=== PATIENT | female | born 1945 | race Caucasian/White ===

== ENCOUNTER 2017-09-06 05:43 | Inpatient (IN) | payer OTHER ==
[2017-09-06] MEDS ORDERED: TRANEXAMIC ACID 3,000 MG in NS (SYRINGE) 50 ML IRR ONE (06:00)
[2017-09-06] MEDS ORDERED: ROPIVACAINE 0.2% 80 MG, EPINEPHrine 0.2 MG, KETOROLAC TROMETHAMINE 30 MG in SYRINGE 0 ML IU ONE (06:00)
[2017-09-06] MEDS ORDERED: FAMOTIDINE 20 MG TAB PO ONE (06:15)
[2017-09-06] MEDS ORDERED: ceFAZolin 2 GM/SWFI 2 GM/20 ML SYR IVP ONE (06:15)
[2017-09-06] MEDS ORDERED: DEXAMETHASONE 4 MG/ML VIAL IVP ONE (06:15)
[2017-09-06] MEDS ORDERED: ACETAMINOPHEN 325 MG TAB PO ONE (06:15)
[2017-09-06] MEDS ORDERED: LR 1,000 ML IV ONE (06:16)
[2017-09-06] MEDS ORDERED: LIDOCAINE 1% 2 ML INJ ID PRN (06:16)
[2017-09-06] MEDS ORDERED: TRANEXAMIC ACID 3,000 MG/50 ML BAG IRR ONE (06:38)
--- NOTE | 2017-09-06 07:11 | PDHPUP ---
History & Physical Update H&P update statement: This history and physical update is based on an assessment of the patient which was completed after admission or registration (within 24 hours), but prior to the surgery/procedure. H&P update: H&P reviewed & patient examined, no change in patient's condition since H&P completed
[2017-09-06] MEDS ORDERED: MIDAZOLAM 2 MG/2 ML VIAL IVP ONE (07:43)
--- NOTE | 2017-09-06 07:43 | PDANEPAE ---
ANE History of Present Illness L THELMA ANE Past Medical History - Cardiovascular History Hx Hypertension: No Hx Arrhythmias: No Hx Chest Pain: No Hx Coronary Artery / Peripheral Vascular Disease: No Hx CHF / Valvular Disease: No Hx Palpitations: No - Pulmonary History Hx COPD: No Hx Asthma/Reactive Airway Disease: No Hx Recent Upper Respiratory Infection: No Hx Oxygen in Use at Home: No Hx Sleep Apnea: No Sleep Apnea Screening Result - Last Documented: Negative - Neurologic History Hx Cerebrovascular Accident: No Hx Seizures: No Hx Dementia: No - Endocrine History Hx Diabetes: No - Renal History Hx Renal Disorders: No - Liver History Hx Hepatic Disorders: No - Neurological & Psychiatric Hx Hx Neurological and Psychiatric Disorders: No - Cancer History Hx Cancer: No - Congenital Disorder History Hx Congenital Disorders: No - GI History Hx Gastrointestinal Disorders: No - Other Health History Other Health History: NONE - Chronic Pain History Chronic Pain: No - Surgical History Prior Surgeries: COLONSCOPY. BREAST BIOPSY 1995 ANE Review of Systems Review of systems is: negative Review of Systems: - Exercise capacity METS (RN): 4 METS ANE Patient History - Allergies Allergies/Adverse Reactions: No Known Allergies Allergy (Verified 08/03/17 10:38) - Home Medications Home medications: home medication list seen and reviewed Home Medications: Ascorbic Acid [Vitamin C 500 mg (*)] 500 mg PO DAILY 07/27/17 [Last Taken ] Herbals/Supplements -Info Only 1 ea PO DAILY 07/27/17 [Last Taken 08/29/17] Levothyroxine [Synthroid 75 mcg (*)] 75 mcg PO DAILY06 07/27/17 [Last Taken 06/25] Multivitamins [Multivitamin (*)] 1 each PO DAILY 07/27/17 [Last Taken 06/20/17] Naproxen Sodium [Aleve 220 MG (*)] 220 mg PO BID PRN 07/27/17 [Last Taken ] Simvastatin [Zocor] 20 mg PO DAILY18 07/27/17 [Last Taken 09/05/17] - NPO status NPO Since - Liquids (Date): 09/06/17 NPO Since - Liquids (Time): 06:00 NPO Since - Solids (Date): 09/05/17 NPO Since - Solids (Time): 18:00 - Anes Hx Anes Hx: no prior problems - Smoking Hx Smoking Status: Never smoked - Family Anes Hx Family Anes Hx: none Family Hx Anesthesia Complications: NONE ANE Labs/Vital Signs - Vital Signs Blood Pressure: 168/82 Heart Rate: 63 Respiratory Rate: 16 O2 Sat (%): 93 Height: 172.72 cm Weight: 81.647 kg ANE Physical Exam - Airway Neck exam: FROM Mallampati Score: Class 1 Mouth exam: normal dental/mouth exam - Pulmonary Pulmonary: no respiratory distress - Cardiovascular Cardiovascular: regular rate and rhythym - ASA Status ASA Status: I ANE Anesthesia Plan Anesthesia Plan: MAC, spinal
[2017-09-06] MEDS ORDERED: MIDAZOLAM 2 MG/2 ML VIAL ONE (07:44)
[2017-09-06] MEDS ORDERED: PROPOFOL/EMULSION 500 MG/50 ML BOTTLE IV ONE (08:11)
[2017-09-06] MEDS ORDERED: LIDOCAINE 2% 100 MG/5 ML SYR ONE (08:11)
[2017-09-06] MEDS ORDERED: fentaNYL 100 MCG/2 ML INJ IVP PRN (08:34)
[2017-09-06] MEDS ORDERED: ONDANSETRON 4 MG/2 ML VIAL IVP PRN ×2 (08:34→09:24)
[2017-09-06] MEDS ORDERED: oxyCODONE IR 5 MG TAB PO PRN ×2 (08:34→09:24)
[2017-09-06] MEDS ORDERED: ACETAMINOPHEN 500 MG TAB PO PRN (08:34)
[2017-09-06] MEDS ORDERED: DEXAMETHASONE 4 MG/ML VIAL IVP PRN (08:34)
[2017-09-06] MEDS ORDERED: PROMETHAZINE HCL 25 MG/ML INJ IVP PRN ×2 (08:34→09:24)
[2017-09-06] MEDS ORDERED: HYDROmorphONE/DILAUDID 2 MG/ML INJ IVP PRN (08:34)
[2017-09-06] MEDS ORDERED: NALOXONE HCL 0.4 MG/ML INJ IVP PRN (08:34)
[2017-09-06] MEDS ORDERED: MEPERIDINE 25 MG/ML SYR IVP PRN (08:34)
[2017-09-06] MEDS ORDERED: HYDROCODONE/APAP 5/325 TAB PO PRN (08:34)
--- NOTE | 2017-09-06 08:36 | POSTANESTH ---
Post Anesthetic Evaluation Cardiovascular Status: Normal, Stable, Similar to Pre-Op Cond Respiratory Status: Normal, Stable, Similar to Pre-op Cond. Level of Consciousness/Mental Status: Can Participate in Eval, Mildly Sleepy, Arousable Pain Control: Adequate, Prn Tx Ordered Nausea/Vomiting Control: Adequate, Prn Tx Ordered Complications Possibly Related to Anesthesia: None Noted
[2017-09-06] MEDS ORDERED: ONDANSETRON DISINTEGRATING 4 MG TAB PO PRN (09:24)
[2017-09-06] MEDS ORDERED: MAGNESIUM HYDROXIDE 30 ML UDCUP PO PRN (09:24)
[2017-09-06] MEDS ORDERED: LACTULOSE 20 GM/30 ML UDCUP PO PRN (09:24)
[2017-09-06] MEDS ORDERED: diphenhydrAMINE 25 MG CAP PO PRN (09:24)
[2017-09-06] MEDS ORDERED: BISACODYL 10 MG SUPP PR PRN (09:24)
[2017-09-06] MEDS ORDERED: DIPHENOXYLATE/ATROPINE LOMOTIL 1 TAB PO PRN (09:24)
[2017-09-06] MEDS ORDERED: TEMAZEPAM 15 MG CAP PO PRN (09:24)
[2017-09-06] MEDS ORDERED: METOCLOPRAMIDE 10 MG/2 ML VIAL IVP PRN (09:24)
[2017-09-06] MEDS ORDERED: PROMETHAZINE HCL 25 MG SUPPR PR PRN (09:24)
[2017-09-06] MEDS ORDERED: CYCLOBENZAPRINE 10 MG TAB PO PRN (09:24)
[2017-09-06] MEDS ORDERED: POLYETHYLENE GLYCOL 3350 17 GM PKT PO PRN (09:24)
[2017-09-06] MEDS ORDERED: LR 1,000 ML IV SCH (09:30)
--- NOTE | 2017-09-06 09:32 | POSTOPPROG ---
Post Op Note Date of Operation: 09/06/17 Surgeon: Jimena Hallman Machine Ironer: panda hallman Anesthesiologist: dr. green Anesthesia: Spinal Pre-op Diagnosis: left hip OA Post-op Diagnosis: same Indication: left hip pain Procedure: L THELMA ant approach Findings: severe hip OA Inf/Abcess present in the surg proc area at time of surgery?: No EBL: 50-100
[2017-09-06] MEDS: ACETAMINOPHEN 325 MG TAB PO SCH ×3 (11:12→23:40)
--- NOTE | 2017-09-06 12:39 | PDMN ---
Medical Necessity Medical necessity: [facility] IP only surgery, cpt 89493 L THELMA
[2017-09-06] MEDS ORDERED: ceFAZolin 2 GM/DEXTROSE 100 ML IV SCH (14:00)
[2017-09-06] MEDS: ceFAZolin 2 GM/SWFI 2 GM/20 ML SYR IVP SCH ×2 (16:31→23:40)
--- NOTE | 2017-09-06 17:54 | GOP ---
[f rep st] OPERATIVE REPORT DATE OF OPERATION: 09/06/2017 SURGEON: Ananda Pacheco MD CORPORATE GENERAL MANAGER: ASIA Gee. ANESTHESIA: Spinal. PREOPERATIVE DIAGNOSIS: Left hip osteoarthritis. POSTOPERATIVE DIAGNOSIS: Left hip osteoarthritis. PROCEDURE PERFORMED: Left total hip arthroplasty with x-ray. FINDINGS: ESTIMATED BLOOD LOSS: 200 cc. INDICATIONS: The patient has progressively worsening arthritis of the hip which has failed medical m anagement. The patient understands the treatment options including continued non-operative care and has selected surgical intervention. The patient has decided to undergo total hip arthroplasty via th e direct anterior approach, understanding the risks of the procedure including, but not limited to, n eurovascular injury, infection, persistent pain, component wear and loosening, deep venous thrombosis , pulmonary embolism, limb length inequality, hip instability (including dislocation), and intra-oper ative fractures. DESCRIPTION OF PROCEDURE: After proper identification of the patient including verification and mckayla ing the surgical site, the patient was brought to the operating room and placed in the supine positio n. All bony prominences were well padded. Anesthesia was induced without complication and intraveno us prophylactic antibiotics were administered prior to skin incision. The operative leg was placed in the Trumpf Arch table extension and the well leg in a Yellofin leg ho lder. The patient was prepped and draped in the usual sterile fashion. The C-arm was draped for int ra-operative fluoroscopy to check acetabular position, femoral component position including leg lengt h and femoral offset. Attention was then drawn to surgical exposure of the hip. An incision was made with a #10 Bard Pipo r blade starting 3 cm lateral and 3 cm distal to the anterior superior iliac spine measuring 8-10 cm and coursing distally toward the greater trochanter. The skin and subcutaneous tissues were divided sharply down to the fascia maria r. The fascia maria r was incised in line with the skin incision exposing the underlying tensor fascia maria r muscle. The muscle was bluntly elevated from the fascia and the f irst extracapsular Cobra retractor was placed laterally at the junction of the superior femoral neck and greater trochanter. The lateral femoral circumflex vessels were identified, cauterized, and divi ded with the Aquamantys bipolar cautery. The deep investing fascia of the TFL was divided to allow p liliya mobilization of the muscle preventing damage during the retraction. The reflected head of the rectus femoris muscle was elevated off the anterior hip capsule and a medial Cobra retractor was plac ed just proximal to the lesser trochanter. The anterior capsulotomy was made sharply from the superolateral acetabulum to the saddle junction of the superior femoral neck and greater trochanter, then coursing inferomedial towards the lesser troc hanter. The retractors were then placed in the intracapsular position for femoral neck osteotomy. C orresponding to pre-operative templating, the osteotomy was made with the oscillating saw carefully p rotecting the greater trochanter and soft tissues. The femoral head was removed from the acetabulum with a corkscrew and confirmed to be severely arthritic with exposed bone, deformity and osteophytes. Similar findings were confirmed in the acetabulum. The Arch table extension was then placed in 40 degrees external rotation. Attention was then drawn to the acetabular preparation. After placement of the anterior and posterio r Cobra retractors outside the labrum and intracapsular, the circumferential labrum was removed sharp ly. The foveal contents were then removed and hemostasis obtained with cautery. The first reamer selected was sized using the removed femoral head. Reaming began with medialization and then commenced in 2 mm increments at 45 degrees of abduction and 15 degrees of anteversion using fluoroscopic navigation. Reaming ceased 1 mm less than the definitive acetabular component and efraín esponded to the pre-operative templating. The final acetabular component was inserted using fluorosc opy to achieve proper orientation yielding excellent purchase and stability in the acetabulum. The f inal acetabular liner was then placed and its seating confirmed. Attention was then turned to the femur. The Arch table extension was placed in extension and adducti on, delivering the osteotomized femoral neck into the wound. A 2-pronged femoral elevator was placed at the calcar and another at the tip of the greater trochanter. The posterolateral capsule was rele ased with cautery allowing mobilization of the femur lateral and anterior for preparation. The exter nal rotators were visualized and preserved. A curette and rongeur were used to open the starting poi nt for broaching. Serial broaching started with the #0 broach and ended with the broach that exhibit ed excellent fit in the proximal femur. A change in pitch during mallet strikes was accompanied by t he inability to advance the broach any further. The trial reduction was performed and fluoroscopic n avigation was utilized to check limb length. Adjustments were made to equalize limb length according ly. After the final trials were accepted they were removed and the wound was copiously lavaged. The femo ral component was seated to the same depth as the final broach and the femoral head was impacted onto the clean trunnion. The hip was then reduced for the final time and once more fluoroscopy was used to check that limb length equality was achieved. The wound was irrigated and closed in layers, the fascia maria r with 2-0 Quill, the subcutaneous tissue with 2-0 Quill, and the skin with Dermabond. Sterile dressings were applied. Final sharps and spon ge counts were accurate. The patient was then transferred to a hospital bed and brought to the [facility] room in stable condition. IMPLANTS: Accolade II size 8 at 127. Acetabular component a 54 mm Trident II. Liner is a Trident X 3, 36 mm. Head is a Biolox Delta 36 mm, -5. /[id number]/MODL
[2017-09-06] MEDS ORDERED: ATORVASTATIN CALCIUM 10 MG TAB PO SCH (18:00)
[2017-09-06] MEDS: ASPIRIN 81 MG CHEWABLE TAB PO SCH (20:56)
[2017-09-06] MEDS: FAMOTIDINE 20 MG TAB PO SCH (20:56)
[2017-09-06] MEDS: SENNOSIDES/DOCUSATE SODIUM TAB PO SCH (20:57)
[2017-09-07] MEDS: ACETAMINOPHEN 325 MG TAB PO SCH (05:05)
[2017-09-07] MEDS ORDERED: LEVOTHYROXINE 75 MCG TAB PO SCH (06:00)
[2017-09-07 07:36] VITALS: BP 163/69
--- NOTE | 2017-09-07 08:32 | SOAPPROG ---
SOAP Progress Note Assessment/Plan: Assessment: Patient is doing well POD 1 s/p L THELMA Pain management: pain is well controlled on oral pain meds. VTE ppx: recommend aspirin 81 mg BID for 4 weeks, cont GAURAV and SCDs Anemia: level is expected initially postop. Asymptomatic. Continue to monitor D/c planning: d/c to home today pending release from PT Plan: 09/07/17 08:31 Subjective: Oanh is doing well today, denies SOB, chest pain and N/V Objective: Vital Signs Temp Pulse Resp BP Pulse Ox 36.8 C 60 16 163/69 H 93 09/07/17 07:35 09/07/17 07:35 09/07/17 07:35 09/07/17 07:35 09/07/17 07:35 Laboratory Results 09/07/17 05:01 09/06/17 09/07/17 09/08/17 05:59 05:59 05:59 Intake Total 2594 Output Total 1750 300 Balance 844 -300 LLE Incision dressing is clean and dry, NVI, +pf/df ICD10 Worksheet Patient Problems: Problems Problem Status Onset Primary localized osteoarthritis of left hip Acute
[2017-09-07] MEDS: ASPIRIN 81 MG CHEWABLE TAB PO SCH (08:33)
[2017-09-07] MEDS: SENNOSIDES/DOCUSATE SODIUM TAB PO SCH (08:33)
[2017-09-07] MEDS: FAMOTIDINE 20 MG TAB PO SCH (08:33)
--- NOTE | 2017-09-07 09:06 | GDS ---
[f rep st] DISCHARGE SUMMARY ADMISSION DIAGNOSIS: Left hip osteoarthritis. DISCHARGE DIAGNOSIS: Left hip osteoarthritis. PROCEDURE: Left total hip arthroplasty VTE PROPHYLAXIS: Recommend aspirin 81 mg twice daily for 4 weeks. BRIEF DESCRIPTION OF HOSPITAL STAY: Patient was admitted for an elective joint arthroplasty. The patient tolerated the procedure well and has passed physical therapy. The patient was given appropriate antibiotic prophylaxis and venous thromboembolism prophylaxis. The patient's pain was well controlled on oral pain medication, patient was holding down food, and had urinated. Decision was made to discharge the patient. The patient was given post-operative prescriptions pre-operatively. PLANS: Follow up as scheduled Dr. Pacheco's office September 28 at 11 a.m. /[id number]/MODL MTDD
--- NOTE | 2017-09-07 09:22 | GDS ---
[f rep st] DISCHARGE SUMMARY ADMISSION DIAGNOSIS: Left hip osteoarthritis. DISCHARGE DIAGNOSIS: Left hip osteoarthritis. PROCEDURE: Left total hip arthroplasty. VTE PROPHYLAXIS: Recommend baby aspirin 81 mg twice daily for 4 weeks. BRIEF DESCRIPTION OF HOSPITAL STAY: Patient was admitted for an elective joint arthroplasty. The pa candy tolerated the procedure well and has passed physical therapy. The patient was given appropriat e antibiotic prophylaxis and venous thromboembolism prophylaxis. The patient's pain was well control led on oral pain medication, patient was holding down food, and had urinated. Decision was made to d ischarge the patient. The patient was given post-operative prescriptions pre-operatively. PLAN: Follow up as scheduled Dr. Pacheco's office, September 28 at 10:15. /[id number]/MODL
== END 2017-09-07 09:47 | disposition home or self-care (01) | DRG 470 ==
LOC: F3N 05:43
PROVIDERS: ADMIT Orthopaedic Surgery; ATTEND Orthopaedic Surgery
PROC: 0SRB04Z Replacement of Left Hip Joint with Ceramic on Polyethylene Synthetic Substitute, Open Approach (ICD-10-PCS; principal; 2017-09-06 08:15)
DX: M16.12 Unilateral primary osteoarthritis, left hip (principal)
CPT/HCPCS: 97116-GP; 97161-GP; G8978-GP-CJ; G8979-GP-CI; G8980-GP-CI; J0171; J0690; J1100; J1885; J2001; J2250; J2704; J2795

== ENCOUNTER 2018-07-18 08:45 | Inpatient (IN) | payer OTHER ==
[~2018-07-18 08:45] MED LIST: ROPIVACAINE 0.2% 80 MG, EPINEPHrine 0.2 MG, KETOROLAC TROMETHAMINE 30 MG in SYRINGE 0 ML IU ONE; TRANEXAMIC ACID 3,000 MG in NS (SYRINGE) 50 ML IRR ONE; TRANEXAMIC ACID 3,000 MG/50 ML BAG IRR ONE
[2018-07-18] MEDS ORDERED: FAMOTIDINE 20 MG TAB PO ONE (08:58)
[2018-07-18] MEDS ORDERED: ceFAZolin 2 GM/DEXTROSE 100 ML IV ONE (08:58)
[2018-07-18] MEDS ORDERED: DEXAMETHASONE 4 MG/ML VIAL IVP ONE (08:58)
[2018-07-18] MEDS ORDERED: ACETAMINOPHEN 325 MG TAB PO ONE (08:58)
[2018-07-18] MEDS ORDERED: LR 1,000 ML IV ONE (08:59)
[2018-07-18] MEDS ORDERED: ROPIVACAINE 0.2% 80 MG, EPINEPHrine 0.2 MG, KETOROLAC TROMETHAMINE 30 MG in SYRINGE 0 ML IU ONE (09:15)
[2018-07-18] MEDS ORDERED: TRANEXAMIC ACID 3,000 MG in NS (SYRINGE) 50 ML IRR ONE (09:30)
--- NOTE | 2018-07-18 10:48 | PDANEPAE ---
ANE History of Present Illness right hip DJD, here for RTHA ANE Past Medical History - Cardiovascular History Hx Hypertension: No Hx Arrhythmias: No Hx Chest Pain: No Hx Coronary Artery / Peripheral Vascular Disease: No Hx CHF / Valvular Disease: No Hx Palpitations: No - Pulmonary History Hx COPD: No Hx Asthma/Reactive Airway Disease: No Hx Recent Upper Respiratory Infection: No Hx Oxygen in Use at Home: No Hx Sleep Apnea: No Sleep Apnea Screening Result - Last Documented: Negative - Neurologic History Hx Cerebrovascular Accident: No Hx Seizures: No Hx Dementia: No - Endocrine History Hx Diabetes: No - Renal History Hx Renal Disorders: No - Liver History Hx Hepatic Disorders: No - Neurological & Psychiatric Hx Hx Neurological and Psychiatric Disorders: No - Cancer History Hx Cancer: No - Congenital Disorder History Hx Congenital Disorders: No - GI History Hx Gastrointestinal Disorders: No - Other Health History Other Health History: NONE - Chronic Pain History Chronic Pain: No - Surgical History Prior Surgeries: COLONSCOPY. BREAST BIOPSY 1995 ANE Review of Systems Review of Systems: - Exercise capacity METS (RN): 4 METS ANE Patient History - Allergies Allergies/Adverse Reactions: No Known Allergies Allergy (Verified 07/03/18 10:35) - Home Medications Home Medications: Ascorbic Acid [Vitamin C 500 mg (*)] 500 mg PO DAILY@07/27/17 [Last Taken ] Herbals/Supplements -Info Only 1 ea PO DAILY 07/27/17 [Last Taken 07/04/18] Levothyroxine [Synthroid 75 mcg (*)] 75 mcg PO DAILY06 07/27/17 [Last Taken ] Multivitamins [Multivitamin (*)] 1 each PO DAILY@07/27/17 [Last Taken ] Simvastatin [Zocor] 20 mg PO DAILY18 07/27/17 [Last Taken 07/18/18] Aspirin [Aspirin 81mg (*)] 81 mg PO SUTUTHSA@06/28/18 [Last Taken 07/18/18] Cholecalciferol Vit D3 [Vitamin D3 2000 units tab (OTC)] 2,000 units PO DAILY@06/28/18 [Last Taken 07/18/18] - NPO status NPO Since - Liquids (Date): 07/18/18 NPO Since - Liquids (Time): 08:00 NPO Since - Solids (Date): 07/17/18 NPO Since - Solids (Time): 18:00 - Smoking Hx Smoking Status: Never smoked - Family Anes Hx Family Hx Anesthesia Complications: NONE ANE Labs/Vital Signs - Vital Signs Blood Pressure: 181/85 Heart Rate: 63 Respiratory Rate: 18 O2 Sat (%): 93 Height: 172.72 cm Weight: 80.739 kg ANE Physical Exam - Airway Neck exam: FROM Mallampati Score: Class 2 Mouth exam: normal dental/mouth exam - Pulmonary Pulmonary: no respiratory distress, no rales or rhonchi - Cardiovascular Cardiovascular: regular rate and rhythym, no murmur, rub, or gallop - ASA Status ASA Status: II ANE Anesthesia Plan Anesthesia Plan: GA with mask, spinal Total IV Anesthesia: Yes
[2018-07-18] MEDS ORDERED: BUPIVACAINE 0.5% 30 ML SDV ONE (10:54)
[2018-07-18] MEDS ORDERED: PHENYLEPHRINE HCL 100 MCG/ML SYR ONE (10:55)
[2018-07-18] MEDS ORDERED: PROPOFOL/EMULSION 500 MG/50 ML BOTTLE IV ONE (10:55)
[2018-07-18] MEDS ORDERED: ONDANSETRON 4 MG/2 ML VIAL ONE (10:55)
[2018-07-18] MEDS ORDERED: fentaNYL 100 MCG/2 ML INJ ONE (10:55)
[2018-07-18] MEDS ORDERED: LIDOCAINE 2% 100 MG/5 ML SYR ONE (10:55)
[2018-07-18] MEDS ORDERED: PROMETHAZINE HCL 25 MG SUPPR PR PRN (11:45)
[2018-07-18] MEDS ORDERED: ONDANSETRON 4 MG/2 ML VIAL IVP PRN (11:45)
[2018-07-18] MEDS ORDERED: DIPHENOXYLATE/ATROPINE LOMOTIL 1 TAB PO PRN (11:45)
[2018-07-18] MEDS ORDERED: PROMETHAZINE HCL 25 MG/ML INJ IVP PRN (11:45)
[2018-07-18] MEDS ORDERED: TEMAZEPAM 15 MG CAP PO PRN (11:45)
[2018-07-18] MEDS ORDERED: METOCLOPRAMIDE 10 MG/2 ML VIAL IVP PRN (11:45)
[2018-07-18] MEDS ORDERED: diphenhydrAMINE 25 MG CAP PO PRN (11:45)
[2018-07-18] MEDS ORDERED: ONDANSETRON DISINTEGRATING 4 MG TAB PO PRN (11:45)
[2018-07-18] MEDS ORDERED: CYCLOBENZAPRINE 10 MG TAB PO PRN (11:45)
[2018-07-18] MEDS ORDERED: oxyCODONE IR 5 MG TAB PO PRN (11:45)
[2018-07-18] MEDS ORDERED: LR 1,000 ML IV SCH (11:45)
[2018-07-18] MEDS ORDERED: PROPOFOL 200 MG/20 ML VIAL ONE (12:17)
[2018-07-18] MEDS: ACETAMINOPHEN 325 MG TAB PO SCH ×3 (16:00→23:55)
[2018-07-18] MEDS ORDERED: ACETAMINOPHEN 325 MG TAB ONE (16:24)
[2018-07-18] MEDS: ceFAZolin 2 GM/DEXTROSE 100 ML IV SCH ×2 (17:00→23:56)
[2018-07-18] MEDS ORDERED: ATORVASTATIN CALCIUM 10 MG TAB PO SCH (18:00)
[2018-07-18] MEDS ORDERED: ASPIRIN 81 MG CHEWABLE TAB ONE (20:44)
[2018-07-18] MEDS ORDERED: FAMOTIDINE 20 MG TAB ONE (20:44)
[2018-07-18] MEDS: ASPIRIN EC 81 MG TAB PO SCH (21:00)
[2018-07-18] MEDS: FAMOTIDINE 20 MG TAB PO SCH (21:00)
[2018-07-18] MEDS: hydrALAZINE 25 MG TAB PO PRN (23:55)
--- NOTE | 2018-07-18 23:57 | PDHOSCONS ---
History and Physical - Chief Complaint Hypertension - History of Present Illness 73 yo F w/ OA, HLD, and hypothyroid admitted 07/18 for R THELMA; hospital medicine service consulted for management of elevated blood pressures. SBP noted to be 200's in the PACU. SBP is in the 180-190 range during my evaluation. The patient is very pleasant and asymptomatic. She tells me she had an elevated BP after her last surgery as well. Per our conversation she has a tendency to have elevated BP's in healthcare settings. Her home BP cuff usually reads SBP in the 120-130 range. She is not on medication for HTN but does have a family history of this. She denies pain at the moment. History Information - Allergies/Home Medication List Allergies/Adverse Reactions: No Known Allergies Allergy (Verified 07/03/18 10:35) Home Medications: Ascorbic Acid [Vitamin C 500 mg (*)] 500 mg PO DAILY@08 07/27/17 [Last Taken ] Herbals/Supplements -Info Only 1 ea PO DAILY 07/27/17 [Last Taken 07/04/18] Levothyroxine [Synthroid 75 mcg (*)] 75 mcg PO DAILY06 07/27/17 [Last Taken ] Multivitamins [Multivitamin (*)] 1 each PO DAILY@07/27/17 [Last Taken ] Simvastatin [Zocor] 20 mg PO DAILY18 07/27/17 [Last Taken 07/18/18] Aspirin [Aspirin 81mg (*)] 81 mg PO SUTUTHSA@06/28/18 [Last Taken 07/18/18] Cholecalciferol Vit D3 [Vitamin D3 2000 units tab (OTC)] 2,000 units PO DAILY@06/28/18 [Last Taken 07/18/18] I have personally reviewed and updated: family history, medical history - Past Medical History Additional medical history: Hypothyroid. HLD. OA - Surgical History Additional surgical history: R THELMA 07/18 - Family History Positive for: hypertension - Social History Smoking Status: Never smoked Review of Systems Review of Systems: ROS: 10pt was reviewed & negative except for what was stated in HPI & below Physical Exam Physical Exam: Temp Pulse Resp BP Pulse Ox 36.7 C 59 L 16 200/102 H 93 07/18/18 21:25 07/18/18 21:25 07/18/18 21:25 07/18/18 21:25 07/18/18 21:25 O2 (L/minute) 0 Constitutional: no apparent distress, not in pain Eyes: PERRL, EOMI Ears, Nose, Mouth, Throat: moist mucous membranes, no oral mucosal ulcers Cardiovascular: regular rate and rhythym, systolic murmur Respiratory: no respiratory distress, clear to auscultation Skin: warm, normal color Musculoskeletal: full muscle strength Neurologic: AAOx3, CN II-XII Intact Psychiatric: interacting appropriately, not anxious Lab Data & Imaging Review Imaging Review: Imaging Impressions Fluoroscopy 07/18/18 06:41 Impression: Intraoperative fluoroscopy provided during an ongoing right hip arthroplasty. Patient: Oanh Carrillo. Assessment & Plan Assessment: 73 yo F admitted for R THELMA now with post-operative HTN. Plan: 1. Elevated blood pressure - In the post-operative setting. Per my conversation with the patient she does not have HTN at baseline, but did have elevated BP after her last surgery as well. She denies pain at the moment but adrenergic surge from post-operative state is probably contributing regardless. - Hydralazine 25 mg PO PRN for SBP>180 ordered - Recommend continued follow up with PCP 2. R THELMA - Per orthopedics primary Thank you for this consult, the hospital medicine service will follow along with you.
[2018-07-19] MEDS: hydrALAZINE 25 MG TAB PO PRN (04:54)
[2018-07-19] MEDS ORDERED: LEVOTHYROXINE 75 MCG TAB PO SCH (06:00)
[2018-07-19] MEDS: ACETAMINOPHEN 325 MG TAB PO SCH (06:22)
[2018-07-19] MEDS: FAMOTIDINE 20 MG TAB PO SCH (07:48)
[2018-07-19] MEDS: ASPIRIN EC 81 MG TAB PO SCH (07:48)
[2018-07-19 07:56] VITALS: BP 166/79
--- NOTE | 2018-07-19 09:28 | SOAPPROG ---
MARINA Progress Note Assessment/Plan: Assessment: Patient is doing well POD1 s/p R THELMA pain is well controlled on oral pain meds VTE ppx: recommend aspirin 81 mg BID for 4 weeks Anemia: level expected initially postop D/c planning: patient has done better than anticipated. BP have improved, slightly elevated. Recommend patient follow up with PCP in a week or so. Patient has been released from PT. Patient may d/c to home once we have an AP pelvis xray. It appears it was taken yesterday afternoon, but I cannot access it. Carolin is aware and will ask radiology if they can fix it so I can see it or will order a new one. Plan: 07/19/18 09:27 07/19/18 09:29 Subjective: Oanh is doing well today, denies SOB ,chest pain and N/V Objective: Vital Signs Temp Pulse Resp BP Pulse Ox 36.6 C 59 L 18 166/79 H 92 07/19/18 07:50 07/19/18 07:50 07/19/18 07:50 07/19/18 07:50 07/19/18 07:50 Laboratory Results 07/19/18 04:56 07/18/18 07/19/18 07/20/18 05:59 05:59 05:59 Intake Total 1175 Output Total 800 Balance 375 RLE: Incision dressing is clean and dry, NVi, +pf/df ICD10 Worksheet Patient Problems: Problems Problem Status Onset Primary localized osteoarthritis of right hip Acute Primary localized osteoarthritis of left hip Acute
--- NOTE | 2018-07-19 10:05 | ASMTLACE ---
STEPHAN Length of stay for Answers: 2 days current admission Acuity / Level of Answers: Yes Care: Did the patient have an inpatient admission? # of Emergency department Answers: 0 visits in the last 6 months Score: 5 Date Signed: 07/19/2018 10:04 AM Electronically Signed By:ALLI Lou
--- NOTE | 2018-07-19 10:23 | PDMN ---
Medical Necessity Medical necessity: [facility] IP only surgery; cpt [id number] R THELMA
--- NOTE | 2018-07-19 11:15 | GDS ---
[f rep st] DISCHARGE SUMMARY ADMISSION DIAGNOSIS: Right hip osteoarthritis. DISCHARGE DIAGNOSIS: Right hip osteoarthritis. PROCEDURE: Right total hip arthroplasty. VTE PROPHYLAXIS: Recommend aspirin 81 mg twice daily for 4 weeks. BRIEF DESCRIPTION OF HOSPITAL STAY: Patient was admitted for an elective joint arthroplasty. The pa reneent tolerated the procedure well and has passed physical therapy. The patient was given appropriat e antibiotic prophylaxis and venous thromboembolism prophylaxis. The patient's pain was well control led on oral pain medication, patient was holding down food, and had urinated. Decision was made to d ischarge the patient. The patient was given post-operative prescriptions pre-operatively. PLAN: Please follow up as scheduled Dr. Pacheco's office, August 09 at 8:45 a.m. /[id number]/MODL
--- NOTE | 2018-07-22 14:06 | GOP ---
[f rep st] OPERATIVE REPORT DATE OF OPERATION: 07/18/2018 SURGEON: Ananda Pacheco MD PROMOTIONS EXECUTIVE PRODUCER: 1. Kimberly Pacheco PA-C. 2. Caroline Self PA-C. PREOPERATIVE DIAGNOSIS: Right hip osteoarthrosis. POSTOPERATIVE DIAGNOSIS: Right hip osteoarthrosis. PROCEDURE PERFORMED: Right total hip arthroplasty with x-ray. FINDINGS: ESTIMATED BLOOD LOSS: 200 mL. INDICATIONS: The patient has progressively worsening arthritis of the hip which has failed medical m anagement. The patient understands the treatment options including continued non-operative care and has selected surgical intervention. The patient has decided to undergo total hip arthroplasty via th e direct anterior approach, understanding the risks of the procedure including, but not limited to, n eurovascular injury, infection, persistent pain, component wear and loosening, deep venous thrombosis , pulmonary embolism, limb length inequality, hip instability (including dislocation), and intra-oper ative fractures. DESCRIPTION OF PROCEDURE: After proper identification of the patient including verification and mckayla ing the surgical site, the patient was brought to the operating room and placed in the supine positio n. All bony prominences were well padded. Anesthesia was induced without complication and intraveno us prophylactic antibiotics were administered prior to skin incision. The operative leg was placed in the Trumpf Arch table extension and the well leg in a Yellofin leg ho lder. The patient was prepped and draped in the usual sterile fashion. The C-arm was draped for int ra-operative fluoroscopy to check acetabular position, femoral component position including leg lengt h and femoral offset. Attention was then drawn to surgical exposure of the hip. An incision was made with a #10 Bard Pipo r blade starting 3 cm lateral and 3 cm distal to the anterior superior iliac spine measuring 8-10 cm and coursing distally toward the greater trochanter. The skin and subcutaneous tissues were divided sharply down to the fascia maria r. The fascia maria r was incised in line with the skin incision exposing the underlying tensor fascia maria r muscle. The muscle was bluntly elevated from the fascia and the f irst extracapsular Cobra retractor was placed laterally at the junction of the superior femoral neck and greater trochanter. The lateral femoral circumflex vessels were identified, cauterized, and divi ded with the Aquamantys bipolar cautery. The deep investing fascia of the TFL was divided to allow p liliya mobilization of the muscle preventing damage during the retraction. The reflected head of the rectus femoris muscle was elevated off the anterior hip capsule and a medial Cobra retractor was plac ed just proximal to the lesser trochanter. The anterior capsulotomy was made sharply from the superolateral acetabulum to the saddle junction of the superior femoral neck and greater trochanter, then coursing inferomedial towards the lesser troc hanter. The retractors were then placed in the intracapsular position for femoral neck osteotomy. C orresponding to pre-operative templating, the osteotomy was made with the oscillating saw carefully p rotecting the greater trochanter and soft tissues. The femoral head was removed from the acetabulum with a corkscrew and confirmed to be severely arthritic with exposed bone, deformity and osteophytes. Similar findings were confirmed in the acetabulum. The Arch table extension was then placed in 40 degrees external rotation. Attention was then drawn to the acetabular preparation. After placement of the anterior and posterio r Cobra retractors outside the labrum and intracapsular, the circumferential labrum was removed sharp ly. The foveal contents were then removed and hemostasis obtained with cautery. The first reamer selected was sized using the removed femoral head. Reaming began with medialization and then commenced in 2 mm increments at 45 degrees of abduction and 15 degrees of anteversion using fluoroscopic navigation. Reaming ceased 1 mm less than the definitive acetabular component and efraín esponded to the pre-operative templating. The final acetabular component was inserted using fluorosc opy to achieve proper orientation yielding excellent purchase and stability in the acetabulum. The f inal acetabular liner was then placed and its seating confirmed. Attention was then turned to the femur. The Arch table extension was placed in extension and adducti on, delivering the osteotomized femoral neck into the wound. A 2-pronged femoral elevator was placed at the calcar and another at the tip of the greater trochanter. The posterolateral capsule was rele ased with cautery allowing mobilization of the femur lateral and anterior for preparation. The exter nal rotators were visualized and preserved. A curette and rongeur were used to open the starting poi nt for broaching. Serial broaching started with the #0 broach and ended with the broach that exhibit ed excellent fit in the proximal femur. A change in pitch during mallet strikes was accompanied by t he inability to advance the broach any further. The trial reduction was performed and fluoroscopic n avigation was utilized to check limb length. Adjustments were made to equalize limb length according ly. After the final trials were accepted they were removed and the wound was copiously lavaged. The femo ral component was seated to the same depth as the final broach and the femoral head was impacted onto the clean trunnion. The hip was then reduced for the final time and once more fluoroscopy was used to check that limb length equality was achieved. The wound was irrigated and closed in layers, the fascia maria r with 2-0 Quill, the subcutaneous tissue with 2-0 Quill, and the skin with Dermabond. Sterile dressings were applied. Final sharps and spon ge counts were accurate. The patient was then transferred to a hospital bed and brought to the [facility] room in stable condition. IMPLANTS: Accolade II, size 7 at 127. Acetabular component is a Trident II 52 mm. Liner is a Tride nt X3 thirty six mm head with a Biolox Delta 36 mm -5. /[id number]/[id number]
== END 2018-07-19 11:21 | disposition home or self-care (01) | DRG 470 ==
LOC: F3N 08:45
PROVIDERS: ADMIT Orthopaedic Surgery; ATTEND Orthopaedic Surgery
PROC: 0SR904Z Replacement of Right Hip Joint with Ceramic on Polyethylene Synthetic Substitute, Open Approach (ICD-10-PCS; principal; 2018-07-18 12:00)
DX: M16.11 Unilateral primary osteoarthritis, right hip (principal); E03.9 Hypothyroidism, unspecified
CPT/HCPCS: 97116-GP; 97161-GP; J0171; J0690; J1100; J1885; J2001; J2370; J2405; J2704; J2795; J3010